=== PATIENT | male | born 1965 | race Caucasian/White ===

== ENCOUNTER 2017-01-23 17:02 | Inpatient (IN) | payer OTHER ==
[~2017-01-23] VITALS: Ht 177.8 cm; Wt 134.9 kg
[2017-03-24 20:16] VITALS: PULSE 88
[2017-03-24] MEDS ORDERED: ACETAMINOPHEN 325 MG TAB PO PRN (21:00)
[2017-03-24] MEDS ORDERED: traMADol 50 MG TAB PO PRN (21:00)
[2017-03-24 21:22] VITALS: BP 131/81; RESP 22
[2017-03-24 21:34] VITALS: Ht 177.8 cm; Wt 134.9 kg
[2017-03-24] MEDS: morphine 2 MG INJ IV PRN ×2 (22:50→22:58)
[2017-03-24] MEDS: ENOXAPARIN 30 MG/0.3 ML SYG SC SCH (22:52)
[2017-03-24] MEDS: ATORVASTATIN 80 MG TAB PO SCH (22:58)
[2017-03-24] MEDS: RANOLAZINE (SR) 500 MG TAB PO SCH (22:59)
[2017-03-24] MEDS: GABAPENTIN 100 MG CAP PO SCH (22:59)
[2017-03-24] MEDS: hydrOXYzine HCL 25 MG TAB PO SCH (23:00)
[2017-03-24] MEDS: AL HYDROX/MG HYDROX/SIMETH 30 ML CUP PO SCH (23:01)
[2017-03-25] VITALS (12 sets, daily range): BP systolic 122–139; BP diastolic 63–91; PULSE 72–92; RESP 16–22
[2017-03-25] MEDS: morphine 2 MG INJ IV PRN ×4 (03:02→21:49)
[2017-03-25] MEDS: PANTOPRAZOLE (EC) 40 MG TAB PO SCH (06:50)
[2017-03-25 08:01] LABS: ADD SCAN DIFF NO
[2017-03-25 08:08] LABS: BASOPHILS % 0.6 % (0.0-2.0); EOSINOPHILS # 0.2 10^3/ul (0.0-0.5); EOSINOPHILS % 3.5 % (0.0-7.0); HEMOGLOBIN 15.3 g/dl (14.0-18.0); LYMPHOCYTES # 2.2 10^3/ul (0.8-2.9); LYMPHOCYTES % 35.6 % (15.0-51.0); MEAN CORPUSCULAR HEMOGLOBIN 29.8 pg (29.0-33.0); MEAN CORPUSCULAR VOLUME 87.5 fl (82.0-101.0); MONOCYTE # 0.5 10^3/ul (0.3-0.9); MONOCYTES % 7.2 % (0.0-11.0); NEUTROPHIL # 3.3 10^3/ul (1.6-7.5); NEUTROPHILS % 52.6 % (39.0-77.0); PLATELET COUNT 201 10^3/UL (140-415); RED BLOOD COUNT 5.14 10^6/ul (4.70-6.10); RED CELL DISTRIBUTION WIDTH 14.6 % (11.5-14.5); WHITE BLOOD COUNT 6.2 10^3/ul (4.8-10.8)
[2017-03-25 08:14] LABS: POTASSIUM 4.1 mmol/L (3.5-5.1)
[2017-03-25 08:17] LABS: CREATININE 1.54 mg/dl (0.61-1.24)
[2017-03-25 08:18] LABS: CALCIUM 9.3 mg/dl (8.4-10.2)
[2017-03-25] MEDS: AL HYDROX/MG HYDROX/SIMETH 30 ML CUP PO SCH ×4 (09:00→21:00)
[2017-03-25] MEDS: RANOLAZINE (SR) 500 MG TAB PO SCH ×2 (09:07→21:47)
[2017-03-25] MEDS: ISOSORBIDE MONONITRATE(SR)60 MG TAB PO SCH (09:07)
[2017-03-25] MEDS: HYDROCHLOROTHIAZIDE 25 MG TAB PO SCH (09:07)
[2017-03-25] MEDS: METOPROLOL (XL) 25 MG TAB PO SCH (09:07)
[2017-03-25] MEDS: PENTOXIFYLLINE (SR) 400 MG TAB PO SCH (09:07)
[2017-03-25] MEDS: GABAPENTIN 100 MG CAP PO SCH ×3 (09:07→21:47)
[2017-03-25] MEDS: ASPIRIN (EC) 325 MG TAB PO SCH (09:07)
[2017-03-25] MEDS: NITROGLYCERIN 0.4 MG/HR PATCH TRANSDERM SCH (09:08)
[2017-03-25] MEDS: AMLODIPINE 10 MG TAB PO SCH (09:08)
[2017-03-25] MEDS: ENOXAPARIN 30 MG/0.3 ML SYG SC SCH ×2 (09:12→21:57)
[2017-03-25] MEDS: NITROGLYCERIN (SL) 0.4 MG TAB SL PRN (11:15)
--- NOTE | 2017-03-25 11:50 | HP ---
DATE OF ADMISSION: 03/24/2017 HISTORY OF PRESENT ILLNESS: Rober Infante is a young male who was recently discharged from [facility]. The patient was seen by Dr. Dwight Montgomery and Dr. Mendoza from [facility]. The patient had angiogram done a few months ago, which shows no obstructive coronary lesion. T he patient also has history of choking episode at [facility] during previous hospitalizatio n and had Heimlich maneuver done. The patient was transferred here because he is capitated to this hospital and he was complaining of chest pain. The patient's EKG shows nonspecific ST-T changes. P stephanie has hypertension. Patient has history of CAD, CHF, history of colon cancer per patient, dysl ipidemia, history of MRSA, hypertension, history of ME per patient, history of CAD and stenting in t he past per patient. ALLERGY HISTORY: Negative. FAMILY HISTORY: Noncontributory. SOCIAL HISTORY: Negative. MEDICATION HISTORY: Patient is on: 1. Isosorbide. 3. Metoprolol. 3. Nitroglycerin. 4. Trental. 5. Tylenol. 6. Amlodipine. 7. Hydralazine. 8. Protonix. 9. Aluminum oxides. 10. Lovenox. 11. Morphine. 12. Ranexa. 13. Aspirin. 14. Lipitor. 15. Gabapentin. 16. Hydrochlorothiazide. 17. Atarax. REVIEW OF SYSTEMS: HEENT: Unremarkable. RESPIRATORY: Unremarkable. CARDIOVASCULAR:____ fevers, ongoing chest pain. ABDOMEN: Obese. EXTREMITIES: Unremarkable. PHYSICAL EXAMINATION: GENERAL: The patient is awake, alert. VITAL SIGNS: Stable. HEAD: Atraumatic, normocephalic. Pupils equal, reactive to light. No pale conjunctivae or icterus . NECK: Supple, no JVD. LUNGS: Clear. CARDIOVASCULAR: S1, S2 are normal. ABDOMEN: Soft, obese, bowel sounds present, no palpable mass or hepatosplenomegaly. No guarding, r ebound tenderness. EXTREMITIES: There is no cyanosis, clubbing, or edema. CENTRAL NERVOUS SYSTEM: The patient is awake and alert with no focal deficit. LABORATORY DATA: From this admission is not available. IMPRESSION: 1. Patient has had chest pain. The patient has non-ST elevation myocardial infarction, status post angiogram done in the past few months ago per casting cleaner. Does not need more studies. Hypertension, dyslipidemia, obesity, musculoskeletal pain. Positive troponin. Neuropathy and anxiety. PLAN: Continue current treatment. Pain medications. Cardiology p.r.n. Dictated By: SAMSON LOPEZ MD BS/NTS Conf#: [id number] DID#: [id number]
--- NOTE | 2017-03-25 14:18 | CONS ---
DATE OF ADMISSION: 03/24/2017 DATE OF CONSULTATION: 03/25/2017 TYPE OF CONSULTATION: Cardiology. REASON FOR CONSULTATION: Chest pain, assess for acute coronary syndrome. REQUESTING PHYSICIAN: Dr. Mauro Lopez HISTORY OF PRESENT ILLNESS: Mr. Infante is a 51-year-old male with a history of coronary artery disea se, nonobstructive by catheterization at [facility] November 2016, evaluated by ____ and Dr. Mendoza from cardiology at that time and again recently, after hospital admission for chest pain thought to be medically managed, congestive heart failure, colon CA, dyslipidemia, hypertension and possible drug seeking behavior who initially presented to outside [facility] [place] with complain ts of substernal chest pain. At outside hospital the patient had an EKG that revealed sinus tachyca rdia with possible anterior OK of indeterminate age. Additionally, patient's labs were notable for a platelet count of 168, hemoglobin of 14.4, white count of 6.6. Sodium of 136, potassium 3.8, crea tinine 1.67, magnesium 2.1, ALT 35, BUN 24, AST 31, amylase 82, lipase 19. BNP of 31. LDL 100, HDL 32. The patient had a minimally positive troponin of 0.043, which been trended up to 0.055 and the n 0.048. The patient underwent a VQ scan which was low probability for pulmonary embolus. The tamiko ent's chest x-ray revealed no acute cardiopulmonary abnormalities. The patient thereafter transferr ed to [facility] due to insurance reasons. Since arrival here, patient denies tequila oing chest pain. The patient's electrocardiogram here reveals normal sinus rhythm at 77, normal axi s, normal intervals, lateral T-wave inversion with borderline anterior R-wave progression and border line inferior Q. PAST MEDICAL HISTORY: As above in HPI. MEDICATIONS CURRENTLY IN HOSPITAL 1. Norvasc 10 mg daily. 2. Aspirin 325 mg daily. 3. Hydrochlorothiazide 25 mg daily. 4. Imdur 60 mg daily. 5. Nitro-Dur patch daily. 6. Toprol-XL 25 mg daily. 7. Trental 40 mg daily. 8. Protonix 40 mg daily. 9. Ranexa 1000 mg q.12h. 10. Lipitor 80 mg at bedtime. 11. Hydralazine 50 mg t.i.d. 12. Hydroxyzine 10 mg at bedtime. 13. Lovenox started on subcutaneous b.i.d. 14. Morphine p.r.n. 15. Sublingual nitroglycerin p.r.n. 16. Ultram p.r.n. 17. Neurontin 100 mg t.i.d. ALLERGIES: NO KNOWN DRUG ALLERGIES. SOCIAL HISTORY: No tobacco, ETOH or illicit drug use per chart ____. FAMILY HISTORY: Negative for sudden cardiac or early CAD. REVIEW OF SYSTEMS: As above in HPI. CONSTITUTIONAL: No fevers, chills. PULMONARY: Intermittent shortness of breath. CARDIOVASCULAR: Intermittent chest pain. Congestive heart failure. GASTROINTESTINAL: No vomiting. GENITOURINARY: No hematuria. MUSCULOSKELETAL: Degenerative joint disease. PSYCHIATRIC: The patient denies depression. NEUROLOGIC: No documented CVA. PHYSICAL EXAMINATION VITAL SIGNS: Temperature of 97.7, blood pressure 131/82, pulse 89, respiratory rate 19, saturation 90%. GENERAL: The patient is sleeping but arousable. NECK: JVP approximately 9 cm of water. CHEST: Fair movement throughout, mild decreased breath sounds at bases bilaterally. HEART: Regular rate and rhythm. Normal S1, S2, I/ systolic murmur, nondisplaced PMI. ABDOMEN: Positive bowel sounds, soft. EXTREMITIES: Trace edema, 1+ pulses bilaterally, posterior tibial. LABORATORIES: As above in HPI with most recently from today, sodium 137, potassium 4.1, creatinine 1.54, BUN 23. White blood cell count 6.2, hemoglobin 6.3, platelet count of 201. IMAGING STUDIES: No further imaging studies for my review at this time. ECG: As above in HPI. No further electrocardiograms for my review at this time. IMPRESSION: 1. Chest pain, assess for acute coronary syndrome in a patient with a cardiac catheterization 2016, which has been documented from [facility] revealing an intermediate lesion in the R CA of approximately 50%. No other significant obstructive disease, possible small vessel disease on medical management evaluated by boring machine feeder and with possible drug seeking behavior and recent med ical noncompliance and signing out advice. 2. Abnormal electrocardiogram with borderline anterior R-wave progression and borderline inferior Q 's. 3. Hypertension, under reasonable control. 4. Dyslipidemia. 5. Renal failure. 6. History of congestive heart failure. 7. Neuropathy. 8. History of MRSA. 9. History of peripheral arterial disease. RECOMMENDATIONS: 1. At this time, would maintain the patient on telemetry monitoring to follow rhythm and rate contr ol closely. 2. Would trend the patient's cardiac enzymes to assess for any significant ongoing cardiac damage i n the setting of renal failure. 3. Check a 2D echo to reassess patient's ejection fraction, wall motion and any major valve abnorma lities. 4. Continue the patient's aspirin for prophylaxis against cardiovascular events if patient found to have positive troponins would initiate on Plavix to maximize medical therapy in the setting of smal l vessel disease. 5. Continue the patient's antianginal medications with Nitro-Dur patch and/or Imdur, would discont inue one of these. Toprol-XL, Norvasc. 6. Additionally, continue the patient's hydralazine for blood pressure control and Ranexa antiangin al medication. 7. Continue the patient's Trental at this time in the setting of peripheral arterial disease and co ntinue the patient's hydrochlorothiazide for additional blood pressure control and volume management . 8. Additionally, check a fasting lipid panel and adjust the patient's statin therapy accordingly. Thank you for allowing me to take part in the care of this patient. I will continue to follow along very closely with you. Further recommendations will be made as the patient progresses through his inpatient hospital clinical course. Dictated By: CODY GONZALEZ/ABDULKADIR Conf#: [id number] DID#: [id number] CC: MAURO LOPEZ MD;*EndCC*
[2017-03-25 18:14] LABS: CREATINE KINASE 66 IU/L (23-200)
[2017-03-25 18:27] LABS: CK-MB 1.74 ng/ml (0.0-2.4)
[2017-03-25 18:32] LABS: TROPONIN-I < 0.012 ng/ml (0.00-0.12)
--- NOTE | 2017-03-25 20:01 | RADRPT ---
Vent Rate: 77 bpm RR Interval: 0 msec [place] Interval: 178 msec QRS Duration: 90 msec QT Interval: 406 msec QTC Interval: 459 msec P-R-T [place]: 42 - -25 - 71 degrees Normal sinus rhythm Low voltage QRS Cannot rule out Inferior infarct , age undetermined Cannot rule out Anterior infarct , age undetermined Abnormal ECG Electronically Signed By: Iftikhar Parsons [id number]
[2017-03-25] MEDS: ATORVASTATIN 80 MG TAB PO SCH (21:47)
[2017-03-25] MEDS: hydrOXYzine HCL 25 MG TAB PO SCH (21:47)
[2017-03-26] VITALS (9 sets, daily range): BP systolic 124–131; BP diastolic 62–74; PULSE 72–83; RESP 17–20
[2017-03-26 01:39] LABS: CK-MB 1.93 ng/ml (0.0-2.4); TROPONIN-I 0.019 ng/ml (0.00-0.12)
[2017-03-26] MEDS: PANTOPRAZOLE (EC) 40 MG TAB PO SCH (06:08)
[2017-03-26] MEDS: morphine 2 MG INJ IV PRN ×2 (06:13→11:14)
[2017-03-26 08:03] LABS: CHOL/HDL RATIO 3.6 RATIO
[2017-03-26 08:08] LABS: TROPONIN-I 0.029 ng/ml (0.00-0.12)
[2017-03-26 08:10] LABS: CK-MB 1.57 ng/ml (0.0-2.4)
[2017-03-26] MEDS: AL HYDROX/MG HYDROX/SIMETH 30 ML CUP PO SCH ×3 (09:00→18:36)
[2017-03-26] MEDS: NITROGLYCERIN 0.4 MG/HR PATCH TRANSDERM SCH (09:00)
[2017-03-26] MEDS: ENOXAPARIN 30 MG/0.3 ML SYG SC SCH (09:09)
[2017-03-26] MEDS: PENTOXIFYLLINE (SR) 400 MG TAB PO SCH (09:10)
[2017-03-26] MEDS: GABAPENTIN 100 MG CAP PO SCH ×2 (09:10→12:49)
[2017-03-26] MEDS: ASPIRIN (EC) 325 MG TAB PO SCH (09:10)
[2017-03-26] MEDS: RANOLAZINE (SR) 500 MG TAB PO SCH (09:10)
[2017-03-26] MEDS: METOPROLOL (XL) 25 MG TAB PO SCH (09:12)
[2017-03-26] MEDS: HYDROCHLOROTHIAZIDE 25 MG TAB PO SCH (09:12)
[2017-03-26] MEDS: AMLODIPINE 10 MG TAB PO SCH (09:12)
[2017-03-26] MEDS: ISOSORBIDE MONONITRATE(SR)60 MG TAB PO SCH (09:12)
--- NOTE | 2017-03-26 15:37 | PDOCDIS ---
Discharge Instructions CONDITION Patient Condition: Stable HOME CARE INSTRUCTIONS: Diet Instructions: Low Fat /Cholesterol ACTIVITY: Activity Restrictions: Slowly Increase Activity FOLLOW UP/APPOINTMENTS Appointments f/u own pcp 1 wk see [facility] technician 1 wk SAMSON LOPEZ MD March 26, 2017 15:37
[2017-03-26] MEDS ORDERED: METO25TA7 PO (15:41)
[2017-03-26] MEDS ORDERED: ATOR80TA75 PO (15:41)
[2017-03-26] MEDS ORDERED: AMLO-147 PO (15:41)
[2017-03-26] MEDS ORDERED: GABA100C14 PO (15:41)
[2017-03-26] MEDS ORDERED: PENT400T2 PO (15:41)
[2017-03-26] MEDS ORDERED: HYD25 PO (15:41)
[2017-03-26] MEDS ORDERED: ASPI325T32 PO (15:41)
[2017-03-26] MEDS ORDERED: NIT4 SL (15:41)
[2017-03-26] MEDS ORDERED: HYDR-906 PO (15:41)
[2017-03-26] MEDS ORDERED: ISOS60TA PO (15:41)
[2017-03-26] MEDS ORDERED: [UNRECOGNIZED DRUG - CODE] TRANSDERM (15:41)
[2017-03-26] MEDS ORDERED: HYDR-3672 PO (15:41)
[2017-03-26] MEDS ORDERED: RANO500T2 PO (15:41)
[2017-03-26] MEDS: NITROGLYCERIN (SL) 0.4 MG TAB SL PRN (15:45)
--- NOTE | 2017-03-26 15:49 | PN ---
Date/Time of Note Date/Time of Note DATE: 03/26/17 TIME: 15:47 Assessment/Plan VTE Prophylaxis VTE Prophylaxis Intervention: other Lines/Catheters IV Catheter Type (from Nrsg): Saline Lock Assessment/Plan Chief Complaint/Hosp Course ckd htn muscle pain plan pain meds Problems: Subjective 24 Hr Interval Summary Subjective hx not possible: other (muscle pain will use soma) Exam/Review of Systems Vital Signs Vitals Vital Signs Date Time Temp Pulse Resp B/P Pulse Ox O2 Delivery O2 Flow Rate FiO2 03/26/17 15:39 97.5 82 20 125/74 98 Intake and Output 03/25/17 03/25/17 03/26/17 15:00 23:00 07:00 Intake Total 1000 ml 520 ml Balance 1000 ml 520 ml Exam Respiratory: clear to auscultation Cardiovascular: regular rate and rhythm Gastrointestinal: soft Musculoskeletal: range of motion (pain+) Results Result Diagram: 03/25/17 0703/25/17 0706 Results 24 hrs Laboratory Tests Test 03/25/17 17:47 03/26/17 00:35 03/26/17 07:11 Creatine Kinase 66 67 56 Creatine Kinase Index 2.6 2.9 2.8 Creatinine Kinase MB (Mass) 1.74 1.93 1.57 Troponin I < 0.012 0.019 0.029 Triglycerides Level 174 H Cholesterol Level 106 LDL Cholesterol, Calculated 42 HDL Cholesterol 29 Cholesterol/HDL Ratio 3.6 Medications Medications Current Medications Amlodipine Besylate (Norvasc) 10 mg DAILY PO Last administered on 03/26/17 09: 12; Admin Dose 10 MG; Start 03/25/17 at 09:00 Aspirin (Ecotrin) 325 mg DAILY PO Last administered on 03/26/17 09:10; Admin Dose 325 MG; Start 03/25/17 at 09:00 Atorvastatin Calcium (Lipitor) 80 mg HS PO Last administered on 03/25/17 21:47 ; Admin Dose 80 MG; Start 03/24/17 at 21:00 Hydralazine HCl (Apresoline) 50 mg TID PO Last administered on 03/26/17 12:49; Admin Dose 50 MG; Start 03/24/17 at 21:00 Hydrochlorothiazide (Hydrochlorothiazide) 25 mg DAILY PO Last administered on 09:12; Admin Dose 25 MG; Start 03/25/17 at 09:00 Hydroxyzine HCl (Atarax) 25 mg QHS PO Last administered on 03/25/17 21:47; Admin Dose 25 MG; Start 03/24/17 at 21:00 Isosorbide Mononitrate (Imdur) 60 mg DAILY PO Last administered on 03/26/17 09: 12; Admin Dose 60 MG; Start 03/25/17 at 09:00 Enoxaparin Sodium (Lovenox) 30 mg BID SC Last administered on 03/26/17 09:09; Admin Dose 30 MG; Start 03/24/17 at 21:00 Morphine Sulfate (morphine) 2 mg Q4H PRN IV CHEST PAIN Last administered on 03/26 11:14; Admin Dose 2 MG; Start 03/24/17 at 21:00 Nitroglycerin (Nitroglycerin (Sl Tab) 0.4 Mg) 1 tab Q5M PRN SL ANGINA Last administered on 03/26/17 15:45; Admin Dose 1 TAB; Start 03/24/17 at 21:00 Nitroglycerin (Nitroglycerin 0.4 Mg/Hr) 1 patch DAILY TRANSDERM Last administered on 03/25/17 09:08; Admin Dose 1 PATCH; Start 03/25/17 at 09:00 Pantoprazole (Protonix Tab) 40 mg DAILY@06 PO Last administered on 03/26/17 06: 08; Admin Dose 40 MG; Start 03/25/17 at 06:00 Ranolazine (Ranexa) 1,000 mg Q12 PO Last administered on 03/26/17 09:10; Admin Dose 1,000 MG; Start 03/24/17 at 22:30 Tramadol HCl (Ultram) 50 mg Q4H PRN PO PAIN; Start 03/24/17 at 21:00 Metoprolol Succinate (Toprol Xl) 25 mg DAILY PO Last administered on 03/26/17 09:12; Admin Dose 25 MG; Start 03/25/17 at 09:00 Pentoxifylline (Trental) 400 mg DAILY PO Last administered on 03/26/17 09:10; Admin Dose 400 MG; Start 03/25/17 at 09:00 Acetaminophen (Tylenol Tab) 650 mg Q4H PRN PO PAIN AND OR ELEVATED TEMP; Start 03/24/17 at 21:00 Gabapentin (Neurontin) 100 mg TID PO Last administered on 03/26/17t 12:49; Admin Dose 100 MG; Start 03/24/17 at 21:00 SAMSON LOPEZ MD March 26, 2017 15:49
--- NOTE | 2017-03-26 18:49 | RADRPT ---
Echocardiogram Report Patient Name: GRACIELA LENZ Gender: Male Date: 1965 Study Date: 26-Mar-2017 Handkerchief Cutter: Dhaval Curry [facility] Location: 5551 Ref. Physician: CODY PARSONS Quality: Technically Difficult Study Procedures: Transthoracic echocardiogram with complete 2D, M-Mode, and doppler examination. Indications: Chest Pain. 2D/M Mode Doppler Measurement Value Normal Ranges Measurement Value Normal Ranges LVIDd 2D 4.4 3.5 - 5.6 cm AV Peak Ricky 1.2 m/sec LVIDs 2D 2.8 2.1 - 4.1 cm AV Peak PG 5.4 mmHg LVPWd 2D 1.2 0.6 - 1.1 cm LVOT Peak Ricky 1.2 m/sec IVSd 2D 1.3 0.6 - 1.1 cm LVOT Peak PG 5.6 mmHg AoR Diam 2D 4.0 2.0 - 3.7 cm MV E Peak Ricky 0.7 m/sec EDV 2D 89.5 cm3 MV A Peak Ricky 0.7 m/sec ESV 2D 21.2 cm3 MV E/A 0.9 LA Dimen 2D 3.5 2.3 - 4.0 cm MV Decel Time 124 msec MV Decel [place] 5 MV E/A 0.9 Findings Left Ventricle: Normal left ventricular systolic function. Normal left ventricular cavity size. Mild concentric left ventricular hypertrophy. Ejection fraction is visually estimated at 5560 %. Tissue Doppler/Mitral Doppler indices are consistent with impaired relaxation (Stage I diastolic dysfunction). Right Ventricle: Normal right ventricular size. Normal right ventricular systolic function. Left Atrium: The left atrium is normal in size. Right Atrium: The right atrium is normal in size. Mitral Valve: Normal appearance and function of the mitral valve with trace physiologic regurgitation. Aortic Valve: No significant aortic stenosis or insufficiency. Aortic cusps appear mildly calcified. Tricuspid Valve: Normal appearance of the tricuspid valve. Unable to obtain RVSP due to minimal presence of tricuspid regurgitation. Pulmonic Valve: Normal pulmonic valve appearance. Pericardium: Normal pericardium with no significant pericardial effusion. Aorta: Normal aortic root. IVC: Normal size and normal respiratory collapse consistent with normal right atrial pressure. Conclusions 1.Normal left ventricular systolic function. Normal left ventricular cavity size. Mild concentric left ventricular hypertrophy. Ejection fraction is visually estimated at 55-60 %. Tissue Doppler/Mitral Doppler indices are consistent with impaired relaxation (Stage I diastolic dysfunction). 2.Normal right ventricular size. Normal right ventricular systolic function. 3.Normal appearance and function of the mitral valve with trace physiologic regurgitation. 4.Normal appearance of the tricuspid valve. Unable to obtain RVSP due to minimal presence of tricuspid regurgitation. Electronically Signed By: Cody Parsons 26-Mar-2017 18:48:31 -0700 Patient Name: GRACIELA LENZ Study Date: 26-Mar-2017 [id number]
--- NOTE | 2017-03-27 14:53 | QN ---
Documentation Comment [id number] SAMSON LOPEZ MD March 27, 2017 14:53
--- NOTE | 2017-03-27 16:07 | DS ---
DATE OF ADMISSION: 03/24/2017 DATE OF DISCHARGE: 03/26/2017 HOSPITAL COURSE: The patient was admitted when he was transferred from [facility] with hollis gnosis of hypertension. The patient has chronic pain. The patient has history of coronary angiogra m done a few months ago and was given medical management. The patient also has a history of neuropa thy, anxiety and chest wall pain. Dr. Parsons saw him in cardiology consultation, so he has seen so far 2 cardiologists at [place] and one roll repairer at [facility]. The patient's chest pain is now atypical and muscular. The patient is stable to be discharged. DISCHARGE DIAGNOSES: Include: 1. Atypical chest pain status post non-ST elevation myocardial infarction ____ angiogram done. 2. Hypertension. 3. Chronic kidney disease. 4. Dyslipidemia. 5. Obesity. 6. Possible sleep apnea. DISCHARGE MEDICATIONS: To continue on: 1. Luther. 2. Prescription for Soma was given. The patient's home medications have been reconciled. The patient to follow with own PCP and own car diologist as an outpatient. Dictated By: SAMSON LOPEZ MD BS/NTS Conf#: [id number] DID#: [id number]
--- NOTE | 2017-03-27 16:38 | RADRPT ---
Vent Rate: 90 bpm RR Interval: 0 msec [place] Interval: 174 msec QRS Duration: 102 msec QT Interval: 414 msec QTC Interval: 506 msec P-R-T [place]: 49 - -28 - 76 degrees Normal sinus rhythm Possible Inferior infarct , age undetermined Possible Anterior infarct , age undetermined Prolonged QT Abnormal ECG Electronically Signed By: Iftikhar Parsons [id number]
== END 2017-03-26 18:59 | disposition home or self-care (01) | DRG 313 ==
LOC: MS4 03-24 19:33
PROVIDERS: ADMIT Internal Medicine Nephrology; ATTEND Internal Medicine Nephrology
DX: R07.9 Chest pain, unspecified (principal); I25.2 Old myocardial infarction; G62.9 Polyneuropathy, unspecified; I10 Essential (primary) hypertension; E78.5 Hyperlipidemia, unspecified; F41.9 Anxiety disorder, unspecified; Z95.5 Presence of coronary angioplasty implant and graft; Z76.5 Malingerer [conscious simulation]
CPT/HCPCS: 80048; 80061; 82550; 82553; 84484; 85025; 87081; 93005; 93306; 97162; J1650; J2270